=== PATIENT | male | born 1990 | race African-American/Black ===

== ENCOUNTER 2019-10-06 22:11 | Emergency (ER) | payer OTHER ==
[~2019-10-06] VITALS: Ht 185.4 cm; Wt 68.0 kg
[2019-10-07] MEDS ORDERED: IBUPROFEN 600600 M1 PO (00:34)
[2019-10-07 00:39] VITALS: BP 132/73
== END 2019-10-07 00:46 | disposition home or self-care (01) ==
LOC: ER 22:11
DX: S13.4XXA Sprain of ligaments of cervical spine, initial encounter (principal); M54.9 Dorsalgia, unspecified; R20.0 Anesthesia of skin; V46.4XXA Person boarding or alighting a car injured in collision with other nonmotor vehicle, initial encounter; Y93.89 Activity, other specified; Y92.488 Other paved roadways as the place of occurrence of the external cause; Y99.2 Volunteer activity